=== PATIENT | female | born 1995 | race Two or more races ===

== ENCOUNTER 2020-09-19 11:47 | Emergency (ER) | payer SELFPAY ==
[~2020-09-19] VITALS: Ht 157.5 cm; Wt 98.7 kg
[2020-09-19 11:54] VITALS: BP 98/55
[2020-09-19] MEDS ORDERED: ACETAMINOPHEN 500 MG TABLET ONE (13:30)
[2020-09-19] MEDS ORDERED: ACETAMINOPHEN 500 MG TABLET PO ONE (13:30)
== END 2020-09-19 13:42 | disposition home or self-care (01) ==
LOC: ED 12:59
DX: S30.0XXA Contusion of lower back and pelvis, initial encounter (principal); S70.01XA Contusion of right hip, initial encounter; W01.0XXA Fall on same level from slipping, tripping and stumbling without subsequent striking against object, initial encounter; Y93.29 Activity, other involving ice and snow; Y92.89 Other specified places as the place of occurrence of the external cause; Y99.8 Other external cause status
CPT/HCPCS: 72110; 99284